=== PATIENT | female | born 1945 | race Two or more races ===

== ENCOUNTER → 2017-01-19 | Outpatient (CLI) | payer MEDICARE, MEDICAID ==
[2017-01-19 08:53] LABS: HEMATOCRIT 34.3 % (36.0-47.0); HEMOGLOBIN 11.5 g/dL (12.0-15.5); HGB HCT DIFFERENCE 0.2; MEAN CORPUSCULAR HEMOGLOBIN 30.9 pg (27.0-33.4); MEAN CORPUSCULAR HGB CONC 33.6 g/dL (32.0-36.0); MEAN CORPUSCULAR VOLUME 92 fl (80-97); RED BLOOD COUNT 3.72 10^6/uL (3.72-5.28); RED CELL DISTRIBUTION WIDTH 14.2 % (11.5-14.0); WHITE BLOOD COUNT 5.1 10^3/uL (4.0-10.5)
[2017-01-19 09:12] LABS: ALANINE AMINOTRANSFERASE 62 U/L (9-52); ALBUMIN 4.2 g/dL (3.5-5.0); ALKALINE PHOSPHATASE 66 U/L (38-126); ASPARTATE AMINO TRANSFERASE 59 U/L (14-36); BILIRUBIN,DIRECT 0.1 mg/dL (0.0-0.4); BILIRUBIN,TOTAL 0.3 mg/dL (0.2-1.3); CHOLESTEROL 171.32 mg/dL (0-200); CREATINE KINASE 803 U/L (30-135); Direct HDL 91 mg/dL (>40); TOTAL PROTEIN 6.5 g/dL (6.3-8.2); TRIGLYCERIDES 69 mg/dL (<150)
[2017-01-19 09:23] LABS: DIRECT LDL 56 mg/dL (<100)
== END ==
LOC: OD 07:45
PROVIDERS: ATTEND Internal Medicine Cardiovascular Disease
DX: R25.2 Cramp and spasm (principal); E78.00 Pure hypercholesterolemia, unspecified; Z79.899 Other long term (current) drug therapy
CPT/HCPCS: 36415; 80061; 80076; 82550; 85027

== ENCOUNTER → 2017-01-23 | Outpatient (CLI) | payer MEDICARE, MEDICAID ==
[2017-01-23 15:31] LABS: ANION GAP 11 (5-19); BLOOD UREA NITROGEN 25 mg/dL (7-20); CALCIUM 10.2 mg/dL (8.4-10.2); CARBON DIOXIDE 28 mmol/L (22-30); CHLORIDE 103 mmol/L (98-107); CREATININE RESULT 0.87 mg/dL (0.52-1.25); GLUCOSE 88 mg/dL (75-110); POTASSIUM 4.8 mmol/L (3.6-5.0); SODIUM 142.4 mmol/L (137-145)
== END ==
LOC: OD 11:38
PROVIDERS: ATTEND Internal Medicine Cardiovascular Disease
DX: Z79.899 Other long term (current) drug therapy (principal)
CPT/HCPCS: 36415; 80048

== ENCOUNTER → 2017-02-26 | Outpatient (CLI) | payer MEDICARE, MEDICAID ==
[2017-02-26 09:19] LABS: ALANINE AMINOTRANSFERASE 46 U/L (9-52); ALBUMIN 4.4 g/dL (3.5-5.0); ALKALINE PHOSPHATASE 71 U/L (38-126); ASPARTATE AMINO TRANSFERASE 43 U/L (14-36); BILIRUBIN,DIRECT 0.3 mg/dL (0.0-0.4); BILIRUBIN,TOTAL 0.6 mg/dL (0.2-1.3); CREATINE KINASE 298 U/L (30-135); TOTAL PROTEIN 7.5 g/dL (6.3-8.2)
== END ==
LOC: OD 07:50
PROVIDERS: ATTEND Internal Medicine Cardiovascular Disease
DX: R74.9 Abnormal serum enzyme level, unspecified (principal); R94.5 Abnormal results of liver function studies
CPT/HCPCS: 36415; 80076; 82550

== ENCOUNTER → 2017-03-03 | Outpatient (CLI) | payer MEDICARE, MEDICAID ==
[~2017-03-03] MED LIST: REGADENOSON INJ 0.4 MG/5 ML DISP.SYRIN IV ONE
--- NOTE | 2017-03-04 09:47 | RADIOLOGY REPORT ---
STRESS TEST REPORT PATIENT NAME: SHANIA BRENNER ROOM#: DATE OF SERVICE: 03/03/2017 AGE: 71Y ORDER#: [id number] REFERRING MD: SARA FERGUSON M.D. INDICATION: For assessment of abnormal EKG findings of old anteroseptal NY and multiple PVCs. PROCEDURE PERFORMED REST/STRESS SINGLE ISOTOPE CARDIOLITE SPECT IMAGING WITH IV LEXISCAN STRESS AND GATED SPECT IMAGING CLINICAL HISTORY This is a 71-year-old female with no known coronary artery disease, but has significant coronary risk factors of diabetes, hypertension, dyslipidemia, and family history of NY, presented with an abnormal ECG with PVCs and old anteroseptal NY. PROCEDURE The patient received IV Lexiscan 0.4 mg infused over ten seconds and flushed. The resting heart rate was 80 bpm and increased to 110 bpm at end infusion. The resting BP was 112/65 and increased to 134/70 at end infusion. The patient had symptoms of shortness of breath but no chest pains. This dissipated without need for treatment. Resting 12 lead EKG showed normal sinus rhythm at 72 bpm with old anteroseptal NY, PVCs frequent at six per minute. At end infusion, sinus tachycardia at 107 per minute was seen with one PAC, but no ST changes. Myocardial perfusion imaging was performed at rest 60 minutes following injection of 10.93 mCi Cardiolite. Ten seconds after IV Lexiscan injection, patient was injected with 32.3 mCi Cardiolite and flushed. Gated post stress tomographic imaging was performed 60 minutes after stress. FINDINGS The overall quality of the study is good. The left ventricular cavity is noted to be normal in size on both the rest and stress studies. There is no evidence of abnormal transient ischemic dilatation of the left ventricle. The TID ratio was 1.11. SPECT images showed no evidence of IV Lexiscan induced reversible ischemia and no fixed perfusion defects. Gated post-stress tomographic imaging showed normal motion and contraction of all LV segments. The left ventricular ejection fraction was calculated to be 68%. IMPRESSION: MYOCARDIAL PERFUSION IMAGING IS NORMAL. THERE IS NO EVIDENCE OF ANY IV LEXISCAN INDUCED REVERSIBLE ISCHEMIA. NO FIXED PERFUSION DEFECTS. OVERALL LEFT VENTRICULAR SYSTOLIC FUNCTION WAS NORMAL. NO REGIONAL WALL MOTION ABNORMALITY WAS SEEN AT ANY OF THE LV SEGMENTS. NO PRIOR STUDIES FOR COMPARISON. INTERPRETING PHYSICIAN: SARA FERGUSON M.D. /: IVONNE TT: [id number] ID: [id number] /: [id number] TD: [id number] JOB: [id number] cc:SARA FERGUSON M.D. >
== END ==
LOC: RAD 06:00
PROVIDERS: ATTEND Internal Medicine Cardiovascular Disease
DX: R94.31 Abnormal electrocardiogram [ECG] [EKG] (principal)
CPT/HCPCS: 93017; 78452; A9500; J2785; Q9969

== ENCOUNTER → 2017-07-06 | Outpatient (CLI) | payer MEDICARE, MEDICAID ==
[2017-07-06 10:28] LABS: ALANINE AMINOTRANSFERASE 44 U/L (9-52); ALBUMIN 4.4 g/dL (3.5-5.0); ALKALINE PHOSPHATASE 62 U/L (38-126); ASPARTATE AMINO TRANSFERASE 34 U/L (14-36); BILIRUBIN,DIRECT 0.3 mg/dL (0.0-0.4); BILIRUBIN,TOTAL 0.5 mg/dL (0.2-1.3); TOTAL PROTEIN 7.3 g/dL (6.3-8.2)
== END ==
LOC: OD 08:25
PROVIDERS: ATTEND Internal Medicine Cardiovascular Disease
DX: R94.5 Abnormal results of liver function studies (principal)
CPT/HCPCS: 36415; 80076

== ENCOUNTER → 2017-07-10 | Outpatient (CLI) | payer MEDICARE, MEDICAID ==
--- NOTE | 2017-07-10 08:57 | WOMENS IMAGING REPORT ---
EXAM DESCRIPTION: TRANSVAGINAL ULTRASOUND COMPLETED DATE/TIME: 07/10/2017 7:53 am REASON FOR STUDY: PELVIC PAIN IN FEMALE; R10.2 R10.2 PELVIC AND PERINEAL PAIN COMPARISON: None. TECHNIQUE: Dynamic and static grayscale images acquired of the pelvis via transvaginal approach and recorded on PACS. Additional selected color Doppler and spectral images recorded. LIMITATIONS: None. FINDINGS: UTERUS: Contour normal. No mass. Uterus measures 5 x 3.5 x 2.1 cm in size. ENDOMETRIAL STRIPE: Endometrium 3 mm in thickness, with trace fluid in the canal. CERVIX: No nabothian cysts. RIGHT OVARY: Not visualized RIGHT OVARY DOPPLER: Not performed LEFT OVARY: Not visualized LEFT OVARY DOPPLER: Not performed FREE FLUID: None noted. OTHER: No other significant finding. IMPRESSION: Small postmenopausal uterus. Ovaries not visualized. TECHNICAL DOCUMENTATION: JOB ID: [id number] [employer]- All Rights Reserved
== END ==
LOC: WI 07:23
PROVIDERS: ATTEND Family Medicine
DX: R10.2 Pelvic and perineal pain (principal)
CPT/HCPCS: 76830

== ENCOUNTER → 2017-10-26 | Outpatient (CLI) | payer MEDICARE, MEDICAID ==
--- NOTE | 2017-10-26 19:23 | XCELERA REPORT ---
[address] [address] Transthoracic Echocardiogram Report Name: SHANIA BRENNER Age: 71 yrs Gender: Female : 1945 Patient Status: Outpatient Patient Location: Study Date: 10/26/2017 10:04 AM Height: 59 in Weight: 109 lb BSA: 1.4 m2 Reason For Study: MURMUR Ordering Physician: SARA GRANDA Performed By: Nancy Gomez Interpretation Summary Mild AV sclerosis, 3 cusps AV, no , no AR. Mild MAC, no MS, no MR, no MVP, normal LA size. No LVH, normal LVEF 65-70%, with stage I LV diastolic dysfunction, no Regional wall motion abnormality, no LV enlargement. TV is normal, mild TR with RVSP 22mmHg RAP 3. no R heart enlargement. Heart murmur is from AV sclerosis, no . MMode/2D Measurements & Calculations RVDd: 2.9 cm LVIDd: 4.1 cm FS: 45.0 % Ao root diam: IVSd: 0.77 cm LVIDs: 2.2 cm EDV(Teich): 72.8 ml 2.8 cm LVPWd: 0.85 cm ESV(Teich): 16.9 ml Ao root area: EF(Teich): 76.8 % 6.3 cm2 LA dimension: 3.0 cm LVOT diam: LVLd ap4: 6.8 cm SV(MOD-sp4): 28.0 ml 1.9 cm EDV(MOD-sp4): LA A2Cs: 12.7 cm2 LVOT area: 41.0 ml LVLs ap4: 5.2 cm 2.8 cm2 ESV(MOD-sp4): 13.0 ml EF(MOD-sp4): 68.3 % LA A4Cs: LA length: 3.6 cm LA Vol Index (BP): LA Volume: 33.0 ml 11.0 cm2 23.2 ml/m2 Doppler Measurements & Calculations MV E max fransisco: MV P1/2t max fransisco: Ao V2 max: LV V1 max P.5 cm/sec 77.0 cm/sec 141.9 cm/sec 6.3 mmHg MV A max fransisco: MV P1/2t: 58.5 msec Ao max PG: LV V1 max: 99.7 cm/sec MVA(P1/2t): 3.8 cm2 8.1 mmHg 125.4 cm/sec MV E/A: 0.77 MV dec slope: CATALINA(V,D): 2.4 cm2 385.5 cm/sec2 PA V2 max: TR max fransisco: 65.2 cm/sec 217.2 cm/sec PA max PG: TR max P.9 mmHg 1.7 mmHg Left Ventricle The left ventricle is normal in size, thickness and function. The left ventricular ejection fraction is normal. LV EF is 65-70%. Doppler measurements suggest impaired left ventricular relaxation, which is associated with grade I/IV or mild diastolic dysfunction. No regional wall motion abnormalities noted. There is no thrombus. Right Ventricle The right ventricle is normal in size, thickness and function. The right ventricular systolic function is normal. Atria The right atrium is normal. The left atrial size is normal. The interatrial septum is intact with no evidence for an atrial septal defect. Mitral Valve The mitral valve leaflets are sclerotic and show some degree of functional abnormality. There is mild mitral annular calcification. There is no evidence of mitral valve prolapse. There is no mitral valve stenosis. There is no mitral regurgitation noted. Aortic Valve The aortic valve is trileaflet. The aortic valve opens well. The aortic valve is sclerotic and shows some degree of functional abnormality. There is no aortic valvular vegetation. There is no aortic valve stenosis. No aortic regurgitation is present. Tricuspid Valve The tricuspid valve is not well visualized secondary to technical limitations. There is no tricuspid valve prolapse. There is no tricuspid stenosis. There is a mild amount of tricuspid regurgitation. Best estimated RVSP is approximately 22 mm/Hg. Pulmonic Valve The pulmonic valve is not well visualized. There is no pulmonic valvular regurgitation. Great Vessels The aortic root is normal size. Effusions There is no pericardial effusion. I WMSI = 1.00 % Normal = 100 Segments Size X - Cannot 2 - 4 - 1-2 small Interpret 1 - Normal Hypokinetic 3 - AkineticDyskinetic 3-5 moderate 5 - 6-14 large Aneurysmal 15-16 diffuse : SARA GRANDA > Sara Granda
== END ==
LOC: SP 09:52
PROVIDERS: ATTEND Internal Medicine Cardiovascular Disease
DX: R01.1 Cardiac murmur, unspecified (principal)
CPT/HCPCS: 93306

== ENCOUNTER 2017-11-23 12:28 | Emergency (ER) | payer MEDICARE, MEDICAID ==
--- NOTE | 2017-11-23 12:59 | ER Document Report ---
ED Medical Screen (RME) - General Chief Complaint: Epigastric Pain Stated Complaint: EPIGASTRIC PAIN Time Seen by Provider: 11/23/17 12:58 Notes: pt with sudden onset of epigastrci pain one hr ago. yesterday had some rectal bleeding. no prev surgeries. no heart disease TRAVEL OUTSIDE OF THE [place] IN LAST 30 DAYS: No - Related Data Allergies/Adverse Reactions: No Known Allergies Allergy (Verified 11/23/17 12:29) Past Medical History - Social History Chew tobacco use (# tins/day): No Frequency of alcohol use: Occasional Drug Abuse: None - Past Medical History Cardiac Medical History: Reports: Hx Coronary Artery Disease, Hx Hypertension Denies: Hx Heart Attack Pulmonary Medical History: Reports: Hx Asthma, Hx Bronchitis Denies: Hx COPD, Hx Pneumonia Neurological Medical History: Denies: Hx Cerebrovascular Accident, Hx Seizures Renal/ Medical History: Denies: Hx Peritoneal Dialysis Musculoskeltal Medical History: Reports Hx Arthritis Past Surgical History: Denies: Hx Hysterectomy - Immunizations Hx Diphtheria, Pertussis, Tetanus Vaccination: Yes Physical Exam - Vital signs Vitals: Temp Pulse Resp BP Pulse Ox 98.1 F 71 13 142/75 H 99 11/23/17 12:32 11/23/17 12:32 11/23/17 12:32 11/23/17 12:32 11/23/17 12:32 Course - Vital Signs Vital signs: Temp Pulse Resp BP Pulse Ox 98.1 F 71 13 142/75 H 99 11/23/17 12:32 11/23/17 12:32 11/23/17 12:32 11/23/17 12:32 11/23/17 12:32
[2017-11-23 13:36] LABS: ABSOLUTE BASOPHILS # (AUTO) 0.1 10^3/uL (0.0-0.2); ABSOLUTE EOSINOPHILS # (AUTO) 0.1 10^3/uL (0.0-0.6); ABSOLUTE LYMPHOCYTES (AUTO) 2.7 10^3/uL (0.5-4.7); ABSOLUTE MONOCYTES (AUTO) 0.4 10^3/uL (0.1-1.4); ABSOLUTE NEUT (AUTO) 3.7 10^3/uL (1.7-8.2); BASOPHILS % (AUTO) 0.9 % (0-2); HEMATOCRIT 33.2 % (36.0-47.0); HEMOGLOBIN 11.3 g/dL (12.0-15.5); LYMPHOCYTES % (AUTO) 39.2 % (13-45); MEAN CORPUSCULAR HEMOGLOBIN 30.5 pg (27.0-33.4); MEAN CORPUSCULAR VOLUME 90 fl (80-97); MONOCYTES % (AUTO) 5.4 % (3-13); PLATELET COUNT 326 10^3/uL (150-450); RED BLOOD COUNT 3.71 10^6/uL (3.72-5.28); SEGMENTED NEUTROPHILS % (AUTO) 53.5 % (42-78); TOTAL CELLS COUNTED % (AUTO) 100 %; WHITE BLOOD COUNT 6.8 10^3/uL (4.0-10.5)
--- NOTE | 2017-11-23 13:48 | EKG REPORT ---
SEVERITY:- ABNORMAL ECG - SINUS RHYTHM PROBABLE LEFT ATRIAL ABNORMALITY CONSIDER ANTEROSEPTAL INFARCT : Confirmed by: Mert Granda MD 23-Nov-2017 13:46:44
[2017-11-23 14:12] LABS: ALANINE AMINOTRANSFERASE 30 U/L (9-52); ALBUMIN 4.6 g/dL (3.5-5.0); ALKALINE PHOSPHATASE 68 U/L (38-126); ANION GAP 13 (5-19); ASPARTATE AMINO TRANSFERASE 34 U/L (14-36); BILIRUBIN,DIRECT 0.1 mg/dL (0.0-0.4); BILIRUBIN,TOTAL 0.2 mg/dL (0.2-1.3); BLOOD UREA NITROGEN 28 mg/dL (7-20); CALCIUM 9.8 mg/dL (8.4-10.2); CARBON DIOXIDE 25 mmol/L (22-30); CHLORIDE 102 mmol/L (98-107); GLUCOSE 87 mg/dL (75-110); LIPASE 254.2 U/L (23-300); POTASSIUM 4.4 mmol/L (3.6-5.0); SODIUM 140.1 mmol/L (137-145); TOTAL PROTEIN 7.2 g/dL (6.3-8.2)
--- NOTE | 2017-11-23 19:05 | RADIOLOGY REPORT (SQ) ---
EXAM DESCRIPTION: CT ABD/PELVIS WITH IV ORAL COMPLETED DATE/TIME: 11/23/2017 6:33 pm REASON FOR STUDY: Epigastric pain, rectal bleeding COMPARISON: None. TECHNIQUE: CT scan of the abdomen and pelvis performed with intravenous and oral contrast using olga galindo scanning technique with dynamic intravenous contrast injection. Images reviewed with lung, soft t issue, and bone windows. Reconstructed coronal and sagittal MPR images reviewed. Delayed images for e valuation of the urinary system also acquired. All images stored on PACS. All CT scanners at this facility use dose modulation, iterative reconstruction, and/or weight based d osing when appropriate to reduce radiation dose to as low as reasonably achievable (ALARA). [facility]: Dose Right [facility]: CareDose [facility]: Dose Right [facility]: Teradose 4D [facility]: [employer] CONTRAST TYPE AND DOSE: contrast/concentration: Isovue 370.00 mg/ml; Total Contrast Delivered: 53.0 ml; Total Saline Delivered: 45.0 ml RENAL FUNCTION: BUN 28 creatinine 0.97. RADIATION DOSE: CT Rad equipment meets quality standard of care and radiation dose reduction techniq ues were employed. CTDIvol: 4.9 - 5.6 mGy. DLP: 518 mGy-cm. . LIMITATIONS: None. FINDINGS: LOWER CHEST: No significant findings. No nodules or infiltrates. LIVER: Normal size. 6 mm cyst. No dilated ducts. SPLEEN: Normal size. No focal lesions. PANCREAS: No masses. No significant calcifications. No adjacent inflammation or peripancreatic fluid collections. Pancreatic duct not dilated. GALLBLADDER: No identified stones by CT criteria. No inflammatory changes to suggest cholecystitis. ADRENAL GLANDS: No significant masses or asymmetry. RIGHT KIDNEY AND URETER: No solid masses. No significant calcifications. No hydronephrosis or hyd roureter. LEFT KIDNEY AND URETER: No solid masses. No significant calcifications. No hydronephrosis or hydr oureter. AORTA AND VESSELS: No aneurysm. No dissection. Renal arteries, SMA, celiac without stenosis. RETROPERITONEUM: No retroperitoneal adenopathy, hemorrhage or masses. BOWEL AND PERITONEAL CAVITY: No obstruction. No visualized masses. No free fluid. Sigmoid diverticul osis. No inflammatory changes or thickening of bowel wall. APPENDIX: Normal. PELVIS: No significant masses. A few coarse calcifications in the uterus consistent with calcified u terine fibroids. Normal bladder. No free fluid. ABDOMINAL WALL: No masses. No hernias. BONES: No significant or acute findings. Degenerative changes in the spine. OTHER: No other significant finding. IMPRESSION: SIGMOID DIVERTICULOSIS. NO CT FINDINGS OF ACUTE DIVERTICULITIS. SMALL SUBCENTIMETER CY ST IN THE LIVER. NO OTHER SIGNIFICANT OR ACUTE FINDINGS IN THE ABDOMEN OR PELVIS. TECHNICAL DOCUMENTATION: JOB ID: [id number] Quality ID # [id number]: Final reports with documentation of one or more dose reduction techniques (e.g., Au tomated exposure control, adjustment of the mA and/or kV according to patient size, use of iterative reconstruction technique) 2010 [employer]- All Rights Reserved Reading location - IP/workstation name: [email or web address]
--- NOTE | 2017-11-23 19:07 | ER Document Report ---
ED GI/ - General Chief Complaint: Epigastric Pain Stated Complaint: EPIGASTRIC PAIN Time Seen by Provider: 11/23/17 12:58 Notes: Patient says that she is been experiencing mid epigastric pain since yesterday evening. She has had it once or twice in the past. Has a history of GERD. Also, was told 2 years ago that she has an ulcer. Today, patient has had 2 bowel movements, and both of them have been associated with some bright red blood, which is not symptoms she has ever had before. She does not have any new pains, in particular no pains rectally with her bowel movements that have been bloody today. She denies any nausea or vomiting. Patient denies any fevers. She has never had any abdominal surgeries. Does take medications for GERD. Has not had a colonoscopy. TRAVEL OUTSIDE OF THE [place] IN LAST 30 DAYS: No - Related Data Allergies/Adverse Reactions: No Known Allergies Allergy (Verified 11/23/17 12:29) Past Medical History - Social History Smoking Status: Former Smoker Chew tobacco use (# tins/day): No Frequency of alcohol use: Occasional Drug Abuse: None Family History: Reviewed & Not Pertinent Patient has suicidal ideation: No Patient has homicidal ideation: No - Past Medical History Cardiac Medical History: Reports: Hx Coronary Artery Disease, Hx Hypertension Denies: Hx Heart Attack Pulmonary Medical History: Reports: Hx Asthma, Hx Bronchitis GI Medical History: Reports: Hx Gastroesophageal Reflux Disease, Hx Ulcer. Denies: Hx Ulcerative Colitis Musculoskeltal Medical History: Reports Hx Arthritis Past Surgical History: Reports: None. Denies: Hx Hysterectomy - Immunizations Hx Diphtheria, Pertussis, Tetanus Vaccination: Yes Review of Systems - Review of Systems Notes: REVIEW OF SYSTEMS: CONSTITUTIONAL : Denies fever. EENT: Denies eye, ear, nose or mouth or throat pain or other symptoms. CARDIOVASCULAR: Denies chest pain. RESPIRATORY: Denies cough, chest congestion, or shortness of breath. GASTROINTESTINAL: See HPI. GENITOURINARY: Denies difficulty or painful urinating, urinary frequency, blood in urine. MUSCULOSKELETAL: Denies back or neck pain. Denies joint pain or swelling. SKIN: Denies rash or skin lesions. NEUROLOGICAL: Denies LOC or altered mental status. Denies headache. Denies sensory loss or motor deficits. ALL OTHER SYSTEMS REVIEWED AND NEGATIVE. Physical Exam - Vital signs Vitals: Temp Pulse Resp BP Pulse Ox 98.1 F 71 13 142/75 H 99 11/23/17 12:32 11/23/17 12:32 11/23/17 12:32 11/23/17 12:32 11/23/17 12:32 Interpretation: Normal - Notes Notes: PHYSICAL EXAMINATION: GENERAL: Well-appearing, in no acute distress. Vital signs are all essentially normal. HEAD: Atraumatic, normocephalic. EYES: Pupils equal round and reactive to light, extraocular movements intact. ENT: oropharynx clear without exudates. Moist mucous membranes. NECK: Normal range of motion, supple. LUNGS: Breath sounds clear and equal bilaterally. HEART: Regular rate and rhythm without murmurs. ABDOMEN: Soft, tender in the epigastrium. No guarding or rebound. No masses. No bruits heard. Rectal exam, no hemorrhoids seen or felt. Yellowish brown stool on glove. Hemoccult came back positive, however, on the specimen. Patient has in her purse a bag with a piece of stool in it that she retrieved from 1 of the bowel movements today. She also took a picture and showed me it, as well. She says that that is blood along the side of the picture. Curiously , this specimen tested negative for guaiac?? No active or fresh blood present. No pain on that examination. BACK: No tenderness throughout entire back. EXTREMITIES: Normal range of motion without pain. NEUROLOGICAL: Normal speech, normal gait. Normal sensory, motor, and reflex exams. Awake, alert, and oriented x3. Cranial nerves normal. PSYCH: Normal mood, normal affect. SKIN: Warm, dry, no rashes. Course - Re-evaluation Re-evalutation: 11/23/17 19:43 Patient's hemoglobin is 11.3, which is stable for her, checking on old records previously. BUN was up slightly, perhaps secondary to some GI bleeding, although the patient does not have any indication of current active bleeding. Diverticulosis has been known to cause some bleeding and patient does have diverticulosis on her CT scan, but not diverticulitis. - Vital Signs Vital signs: Temp Pulse Resp BP Pulse Ox 98.0 F 64 16 122/53 L 100 11/23/17 16:50 11/23/17 16:50 11/23/17 16:50 11/23/17 16:50 11/23/17 16:50 - Laboratory Result Diagrams: 11/23/17 13:21 11/23/17 13:21 Laboratory results interpreted by me: 11/23/17 11/23/17 13:21 13:21 RBC 3.71 L Hgb 11.3 L Hct 33.2 L BUN 28 H Est GFR (Non-Af Amer) 57 L - Diagnostic Test Radiology reviewed: Image reviewed, Reports reviewed - CT scan shows sigmoid diverticulosis, but not diverticulitis. Otherwise essentially unremarkable except for a liver cyst. - EKG Interpretation by Me EKG shows normal: Sinus rhythm Rate: Normal Rhythm: NSR Additional EKG results interpreted by me: 11/23/17 19:42 EKG shows poor R-wave progression, but nothing that looks like an acute process. Discharge - Discharge Clinical Impression: Epigastric pain, Rectal bleeding, Diverticulosis Condition: Stable Disposition: HOME, SELF-CARE Additional Instructions: Rectal Bleeding, Unclear Cause No definite cause has been found for the rectal bleeding you have experienced. Among the possible causes are internal or external hemorrhoids ( internal hemorrhoids can't be felt on the outside), an anal fissure (a crack at the anal ring), infections or inflammatory diseases of the colon, tumors or polyps, or diverticula (diverticula are outpouchings from the colon wall). To establish a cause for your bleeding (or at least make certain there is no serious problem such as a tumor), further evaluation will be necessary. This may include special X-rays, or passage of a scope up into the colon. Be sure to keep your follow-up appointment. Should you develop brisk bleeding, abdominal pain, fever, lightheadedness, or fever, call the doctor or return at once. Diverticulosis On your CT scan, you have diverticulosis, but not diverticulitis. Unless that condition changes, you do not need to be in the hospital or have any surgeries. You do need to have further workup. Follow-up with your doctor to arrange for you to have an upper and lower scoping procedure soon. Return if you develop heavy, repeated bleeding, fevers, worsening abdominal pain , etc. FOLLOW-UP CARE: If you have been referred to a physician for follow-up care, call the physician s office for an appointment as you were instructed or within the next two days. If you experience worsening or a significant change in your symptoms, notify the physician immediately or return to the Emergency Department at any time for re-evaluation. Follow-up with your doctor, Dr. rIwin in the next week.
[2017-11-23 19:41] VITALS: BP 115/74
== END 2017-11-23 19:46 | disposition home or self-care (01) ==
LOC: ER 12:28
DX: K21.9 Gastro-esophageal reflux disease without esophagitis (principal); Z79.899 Other long term (current) drug therapy; K57.30 Diverticulosis of large intestine without perforation or abscess without bleeding; K62.5 Hemorrhage of anus and rectum; R10.13 Epigastric pain; I10 Essential (primary) hypertension; I25.10 Atherosclerotic heart disease of native coronary artery without angina pectoris; J45.909 Unspecified asthma, uncomplicated; Z87.891 Personal history of nicotine dependence
CPT/HCPCS: 36415; 74177; 80053; 82272; 83690; 84484; 85025; 93005; 93010; 99285

== ENCOUNTER 2017-12-07 09:17 | Day surgery (SDC) | payer MEDICARE, MEDICAID ==
[~2017-12-07 09:17] MED LIST changes: +PROPOFOL INJ 200 MG/20 ML VIAL IV ONE; -REGADENOSON INJ 0.4 MG/5 ML DISP.SYRIN IV ONE
[2017-12-07] MEDS ORDERED: PROPOFOL INJ 200 MG/20 ML VIAL IV ONE (10:43)
[2017-12-07 11:33] VITALS: BP 117/51
--- NOTE | 2017-12-07 13:58 | Operative Report ---
Operative Report DATE OF SURGERY: 12/07/17 Operative Report: The risks, benefits and alternatives of the procedure including risks of bleeding, perforation requiring surgery are explained to the patient in detail and informed consent is obtained. Patient was taken to the endoscopy suite and placed in the left, lateral decubital position. Timeout was called. Propofol medications administered. A rectal examination is done which did not reveal any masses, tears or fissures. An Olympus videoscope was inserted into the patient's rectum. The scope was then carefully advanced all the way to the cecum. The cecum was identified by the usual proximal including the ileocecal valve as well as the appendiceal office. Photodocumentation is obtained. Prep is good. The scope was then sequentially pulled back via the various segments of the colon including the ascending colon, hepatic flexure, descending colon and finally into to the rectosigmoid portions of the colon. Retroflexion maneuvers performed. The risks benefits and alternatives of the procedure explained to the patient in detail and informed consent is obtained.A GIF Olympus video scope was inserted into the patient's mouth and hypopharynx, the esophagus is identified intubated and insufflated, the scope was then advanced through the esophagus stomach and duodenum, retroflexion maneuver is done ,the esophagus stomach and first and second portions of the duodenum examined PREOPERATIVE DIAGNOSIS: Epigastric pain. Rectal bleeding. Known history of diverticulosis POSTOPERATIVE DIAGNOSIS: Gastritis status post biopsy rule out Helicobacter pylori. Schatzki's ring that is broken. Internal hemorrhoids. Moderate sigmoid diverticulosis OPERATION: Diagnostic colonoscopy. EGD with biopsy SURGEON: PADILLA GOLD ANESTHESIA: LMAC TISSUE REMOVED OR ALTERED: As noted above. COMPLICATIONS: None. ESTIMATED BLOOD LOSS: None. INTRAOPERATIVE FINDINGS: As noted above. PROCEDURE: Patient tolerated procedure well. No immediate postprocedure complications are noted. Patient discharged in good condition. Discharge date 12/07/2017. Discharge diet: Regular. Discharge activity: Regular. 2-3 week follow-up discuss findings. Patient is instructed call the office or proceed to the emergency room should have any further problems or questions. We will await pathology.
== END 2017-12-07 11:25 | disposition home or self-care (01) ==
LOC: END 09:17
PROVIDERS: ATTEND Internal Medicine Gastroenterology
PROC: 0DB68ZX Excision of Stomach, Via Natural or Artificial Opening Endoscopic, Diagnostic (ICD-10-PCS; principal; 2017-12-07 12:00)
DX: K29.50 Unspecified chronic gastritis without bleeding (principal); K22.9 Disease of esophagus, unspecified; K62.5 Hemorrhage of anus and rectum; K64.8 Other hemorrhoids; K57.30 Diverticulosis of large intestine without perforation or abscess without bleeding; I10 Essential (primary) hypertension; E11.9 Type 2 diabetes mellitus without complications; J44.9 Chronic obstructive pulmonary disease, unspecified; E78.5 Hyperlipidemia, unspecified; J45.40 Moderate persistent asthma, uncomplicated; M81.0 Age-related osteoporosis without current pathological fracture; Z79.899 Other long term (current) drug therapy; Z79.84 Long term (current) use of oral hypoglycemic drugs; Z87.891 Personal history of nicotine dependence; Z79.51 Long term (current) use of inhaled steroids; Z86.010 Personal history of colon polyps
CPT/HCPCS: 43239; 45378; 82962; 88305 ×2; J2704; 813

== ENCOUNTER → 2018-02-04 | Outpatient (CLI) | payer MEDICARE, MEDICAID ==
[2018-02-04 09:52] LABS: HEMOGLOBIN 11.2 g/dL (12.0-15.5); MEAN CORPUSCULAR HEMOGLOBIN 29.8 pg (27.0-33.4); MEAN CORPUSCULAR VOLUME 90 fl (80-97); PLATELET COUNT 325 10^3/uL (150-450); RED BLOOD COUNT 3.76 10^6/uL (3.72-5.28); RED CELL DISTRIBUTION WIDTH 14.9 % (11.5-14.0); WHITE BLOOD COUNT 7.3 10^3/uL (4.0-10.5)
[2018-02-04 10:13] LABS: ALANINE AMINOTRANSFERASE 30 U/L (9-52); ALBUMIN 4.3 g/dL (3.5-5.0); ALKALINE PHOSPHATASE 60 U/L (38-126); ANION GAP 11 (5-19); ASPARTATE AMINO TRANSFERASE 32 U/L (14-36); BILIRUBIN,DIRECT 0.2 mg/dL (0.0-0.4); BILIRUBIN,TOTAL 0.3 mg/dL (0.2-1.3); BLOOD UREA NITROGEN 24 mg/dL (7-20); CALCIUM 9.7 mg/dL (8.4-10.2); CARBON DIOXIDE 28 mmol/L (22-30); CHLORIDE 103 mmol/L (98-107); CHOLESTEROL 225.73 mg/dL (0-200); CREATINE KINASE 239 U/L (30-135); GLUCOSE 87 mg/dL (75-110); POTASSIUM 4.6 mmol/L (3.6-5.0); SODIUM 142.3 mmol/L (137-145); TRIGLYCERIDES 75 mg/dL (<150)
[2018-02-04 10:24] LABS: DIRECT LDL 88 mg/dL (<100)
== END ==
LOC: OD 09:12
PROVIDERS: ATTEND Internal Medicine Cardiovascular Disease
DX: R94.5 Abnormal results of liver function studies (principal); E78.00 Pure hypercholesterolemia, unspecified; D64.9 Anemia, unspecified; R26.2 Difficulty in walking, not elsewhere classified; I10 Essential (primary) hypertension; Z79.899 Other long term (current) drug therapy
CPT/HCPCS: 36415; 80048; 80061; 80076; 82550; 83735; 85027

== ENCOUNTER → 2018-05-05 | Outpatient (CLI) | payer MEDICARE, MEDICAID ==
[2018-05-05 09:13] LABS: ALANINE AMINOTRANSFERASE 39 U/L (9-52); ALBUMIN 4.3 g/dL (3.5-5.0); ALKALINE PHOSPHATASE 52 U/L (38-126); ASPARTATE AMINO TRANSFERASE 35 U/L (14-36); BILIRUBIN,DIRECT 0.3 mg/dL (0.0-0.4); BILIRUBIN,TOTAL 0.4 mg/dL (0.2-1.3); TOTAL PROTEIN 7.3 g/dL (6.3-8.2)
== END ==
LOC: OD 08:20
PROVIDERS: ATTEND Internal Medicine Cardiovascular Disease
DX: R94.5 Abnormal results of liver function studies (principal)
CPT/HCPCS: 36415; 80076

== ENCOUNTER → 2018-05-17 | Outpatient (CLI) | payer MEDICARE, MEDICAID ==
--- NOTE | 2018-05-17 09:35 | WOMENS IMAGING REPORT ---
EXAM DESCRIPTION: U/S ABDOMEN LIMITED COMPLETED DATE/TIME: 05/17/2018 7:59 am REASON FOR STUDY: R94.5;ABNORMAL LIVER FUNCTION R94.5 ABNORMAL RESULTS OF LIVER FUNCTION STUDIES COMPARISON: CT abdomen and pelvis examination dated 11/23/2017. TECHNIQUE: Dynamic and static grayscale images acquired of the abdomen and recorded on PACS. Additio nal selected color Doppler and spectral images recorded. LIMITATIONS: None. FINDINGS: PANCREAS: No masses. Visualized pancreatic duct normal caliber. LIVER: The liver measures 12.5 cm. A thinly septated cyst measures 7 x 8 x 7 mm, correlates with the CT examination dated 11/23/2017. LIVER VASCULATURE: Normal directional flow of the main portal vein and hepatic veins. GALLBLADDER: No stones. The gallbladder wall measures 2.0 mm, normal wall thickness. No pericholecys tic fluid. ULTRASOUND-DETECTED JAY'S SIGN: Negative. INTRAHEPATIC DUCTS AND COMMON DUCT: CBD measures 3.3 mm in diameter, normal. The intrahepatic ducts normal caliber. No filling defects. INFERIOR VENA CAVA: Normal flow. AORTA: No aneurysm. RIGHT KIDNEY: The right kidney measures 10.1 x 3.2 x 4.5 cm, normal size. Normal echogenicity. No so lid or suspicious masses. No hydronephrosis. No calcifications. PERITONEAL AND RIGHT PLEURAL SPACE: No ascites or effusions. OTHER: No other significant findings. IMPRESSION: 1 Small thinly septated hepatic cyst, correlates with the CT examination dated 11/23/2017 . 2 Examination is otherwise unremarkable sonographically. TECHNICAL DOCUMENTATION: JOB ID: [id number] [employer]- All Rights Reserved Reading location - IP/workstation name: [email or web address]
== END ==
LOC: WI 07:12
PROVIDERS: ATTEND Internal Medicine Cardiovascular Disease
DX: R94.5 Abnormal results of liver function studies (principal)
CPT/HCPCS: 76705

== ENCOUNTER → 2018-08-02 | Outpatient (CLI) | payer MEDICARE, MEDICAID ==
[2018-08-02 10:42] LABS: TRIGLYCERIDES 72 mg/dL (<150)
[2018-08-02 10:43] LABS: ALANINE AMINOTRANSFERASE 31 U/L (9-52); ALBUMIN 4.3 g/dL (3.5-5.0); ALKALINE PHOSPHATASE 73 U/L (38-126); ASPARTATE AMINO TRANSFERASE 35 U/L (14-36); BILIRUBIN,DIRECT 0.1 mg/dL (0.0-0.4); BILIRUBIN,TOTAL 0.4 mg/dL (0.2-1.3); TOTAL PROTEIN 6.9 g/dL (6.3-8.2)
[2018-08-02 10:56] LABS: DIRECT LDL 118 mg/dL (<100)
== END ==
LOC: OD 08:58
PROVIDERS: ATTEND Internal Medicine Cardiovascular Disease
DX: E78.00 Pure hypercholesterolemia, unspecified (principal); R94.5 Abnormal results of liver function studies
CPT/HCPCS: 36415; 80061; 80076

== ENCOUNTER → 2018-11-04 | Outpatient (CLI) | payer MEDICARE, MEDICAID ==
[2018-11-04 10:34] LABS: ALANINE AMINOTRANSFERASE 28 U/L (9-52); ALBUMIN 4.3 g/dL (3.5-5.0); ALKALINE PHOSPHATASE 73 U/L (38-126); ANION GAP 8 (5-19); ASPARTATE AMINO TRANSFERASE 30 U/L (14-36); BILIRUBIN,DIRECT 0.2 mg/dL (0.0-0.4); BILIRUBIN,TOTAL 0.4 mg/dL (0.2-1.3); BLOOD UREA NITROGEN 27 mg/dL (7-20); CALCIUM 9.7 mg/dL (8.4-10.2); CARBON DIOXIDE 30 mmol/L (22-30); CHLORIDE 104 mmol/L (98-107); CREATINE KINASE 185 U/L (30-135); GLUCOSE 92 mg/dL (75-110); POTASSIUM 4.6 mmol/L (3.6-5.0); SODIUM 141.5 mmol/L (137-145); TOTAL PROTEIN 6.9 g/dL (6.3-8.2); TRIGLYCERIDES 103 mg/dL (<150)
[2018-11-04 10:45] LABS: DIRECT LDL 102 mg/dL (<100)
== END ==
LOC: OD 09:21
PROVIDERS: ATTEND Internal Medicine Cardiovascular Disease
DX: E78.00 Pure hypercholesterolemia, unspecified (principal); I10 Essential (primary) hypertension; R74.9 Abnormal serum enzyme level, unspecified; Z79.899 Other long term (current) drug therapy
CPT/HCPCS: 36415; 80048; 80061; 80076; 82550

== ENCOUNTER → 2018-11-09 | Outpatient (CLI) | payer MEDICARE, MEDICAID ==
[2018-11-09 10:57] LABS: HEMATOCRIT 36.4 % (36.0-47.0); HEMOGLOBIN 12.5 g/dL (12.0-15.5); MEAN CORPUSCULAR HEMOGLOBIN 31.9 pg (27.0-33.4); MEAN CORPUSCULAR HGB CONC 34.3 g/dL (32.0-36.0); MEAN CORPUSCULAR VOLUME 93 fl (80-97); PLATELET COUNT 319 10^3/uL (150-450); RED BLOOD COUNT 3.92 10^6/uL (3.72-5.28); RED CELL DISTRIBUTION WIDTH 13.6 % (11.5-14.0); WHITE BLOOD COUNT 6.3 10^3/uL (4.0-10.5)
[2018-11-09 11:39] LABS: ERYTHROCYTE SEDIMENTATION RATE 25 mm/hr (0-30)
[2018-11-10 14:58] LABS: ANTINUCLEAR ANTIBODIES Negative (Negative)
[2018-11-11 15:37] LABS: ANTIMYELOPEROXIDASE (MPO) AB <9.0 U/mL (0.0-9.0); CYTOPLASMIC (C-ANCA) <1:20 titer (Neg:<1:20)
[2018-11-12 02:46] LABS: ATYPICAL PANCA <1:20 titer (Neg:<1:20); PERINUCLEAR (P-ANCA) <1:20 titer (Neg:<1:20)
== END ==
LOC: OD 10:07
PROVIDERS: ATTEND Internal Medicine Cardiovascular Disease
DX: L95.9 Vasculitis limited to the skin, unspecified (principal); R21 Rash and other nonspecific skin eruption
CPT/HCPCS: 36415; 83516; 85027; 85652; 86038; 86141; 86256

== ENCOUNTER → 2018-12-23 | Outpatient (CLI) | payer MEDICARE, MEDICAID ==
[2018-12-23 09:30] LABS: HEMATOCRIT 37.9 % (36.0-47.0); MEAN CORPUSCULAR HEMOGLOBIN 31.7 pg (27.0-33.4); MEAN CORPUSCULAR HGB CONC 34.2 g/dL (32.0-36.0); MEAN CORPUSCULAR VOLUME 93 fl (80-97); PLATELET COUNT 288 10^3/uL (150-450); RED BLOOD COUNT 4.09 10^6/uL (3.72-5.28); RED CELL DISTRIBUTION WIDTH 13.7 % (11.5-14.0); WHITE BLOOD COUNT 4.6 10^3/uL (4.0-10.5)
[2018-12-23 10:11] LABS: ANION GAP 6 (5-19); BLOOD UREA NITROGEN 28 mg/dL (7-20); CALCIUM 10.3 mg/dL (8.4-10.2); CARBON DIOXIDE 29 mmol/L (22-30); CHLORIDE 101 mmol/L (98-107); CREATINE KINASE 209 U/L (30-135); GLUCOSE 88 mg/dL (75-110); POTASSIUM 4.7 mmol/L (3.6-5.0); SODIUM 136.4 mmol/L (137-145)
== END ==
LOC: OD 08:55
PROVIDERS: ATTEND Internal Medicine Cardiovascular Disease
DX: I10 Essential (primary) hypertension (principal); R25.2 Cramp and spasm; D64.9 Anemia, unspecified; E55.9 Vitamin D deficiency, unspecified; Z79.899 Other long term (current) drug therapy
CPT/HCPCS: 36415; 80048; 82306; 82550; 83735; 84443; 85027

== ENCOUNTER → 2019-06-27 | Outpatient (CLI) | payer MEDICARE, MEDICAID ==
[2019-06-27 09:06] LABS: ALBUMIN 4.4 g/dL (3.5-5.0); ALKALINE PHOSPHATASE 61 U/L (38-126); ANION GAP 8 (5-19); ASPARTATE AMINO TRANSFERASE 36 U/L (14-36); BILIRUBIN,DIRECT 0.2 mg/dL (0.0-0.4); BILIRUBIN,TOTAL 0.5 mg/dL (0.2-1.3); BLOOD UREA NITROGEN 23 mg/dL (7-20); CARBON DIOXIDE 29 mmol/L (22-30); CHLORIDE 101 mmol/L (98-107); CHOLESTEROL 246.95 mg/dL (0-200); GLUCOSE 94 mg/dL (75-110); POTASSIUM 4.7 mmol/L (3.6-5.0); TOTAL PROTEIN 7.6 g/dL (6.3-8.2); TRIGLYCERIDES 125 mg/dL (<150)
[2019-06-27 09:17] LABS: DIRECT LDL 130 mg/dL (<100)
== END ==
LOC: OD 07:35
PROVIDERS: ATTEND Internal Medicine Cardiovascular Disease
DX: E78.00 Pure hypercholesterolemia, unspecified (principal); I10 Essential (primary) hypertension; Z79.899 Other long term (current) drug therapy
CPT/HCPCS: 36415; 80048; 80061; 80076

== ENCOUNTER → 2019-10-06 | Outpatient (CLI) | payer MEDICARE, MEDICAID ==
[2019-10-06 09:56] LABS: ANION GAP 8 (5-19); BLOOD UREA NITROGEN 21 mg/dL (7-20); CALCIUM 10.4 mg/dL (8.4-10.2); CARBON DIOXIDE 30 mmol/L (22-30); CHLORIDE 101 mmol/L (98-107); GLUCOSE 96 mg/dL (75-110); POTASSIUM 4.5 mmol/L (3.6-5.0)
== END ==
LOC: OD 08:46
PROVIDERS: ATTEND Internal Medicine Cardiovascular Disease
DX: I10 Essential (primary) hypertension (principal); Z79.899 Other long term (current) drug therapy
CPT/HCPCS: 36415; 80048

== ENCOUNTER → 2020-01-13 | Outpatient (CLI) | payer MEDICARE, MEDICAID ==
[2020-01-13 10:30] LABS: ALBUMIN 4.3 g/dL (3.5-5.0); ALKALINE PHOSPHATASE 68 U/L (38-126); ANION GAP 6 (5-19); ASPARTATE AMINO TRANSFERASE 30 U/L (14-36); BILIRUBIN,TOTAL 0.5 mg/dL (0.2-1.3); BLOOD UREA NITROGEN 24 mg/dL (7-20); CALCIUM 9.5 mg/dL (8.4-10.2); CARBON DIOXIDE 28 mmol/L (22-30); CHLORIDE 103 mmol/L (98-107); GLUCOSE 92 mg/dL (75-110); POTASSIUM 4.5 mmol/L (3.6-5.0); TOTAL PROTEIN 7.5 g/dL (6.3-8.2)
== END ==
LOC: OD 09:01
PROVIDERS: ATTEND Internal Medicine Cardiovascular Disease
DX: I10 Essential (primary) hypertension (principal); R25.2 Cramp and spasm; R94.5 Abnormal results of liver function studies; Z79.899 Other long term (current) drug therapy
CPT/HCPCS: 36415; 80048; 80076; 83735

== ENCOUNTER → 2020-04-23 | Outpatient (CLI) | payer MEDICARE, MEDICAID ==
[2020-04-23 08:39] LABS: ANION GAP 9 (5-19); BLOOD UREA NITROGEN 29 mg/dL (7-20); CARBON DIOXIDE 25 mmol/L (22-30); CHLORIDE 103 mmol/L (98-107); GLUCOSE 99 mg/dL (75-110); POTASSIUM 4.8 mmol/L (3.6-5.0)
== END ==
LOC: OD 07:22
PROVIDERS: ATTEND Internal Medicine Cardiovascular Disease
DX: E83.42 Hypomagnesemia (principal); I10 Essential (primary) hypertension; Z79.899 Other long term (current) drug therapy
CPT/HCPCS: 36415; 80048; 83735

== ENCOUNTER → 2020-05-24 | Outpatient (CLI) | payer MEDICARE, MEDICAID ==
[~2020-05-24] MED LIST changes: -PROPOFOL INJ 200 MG/20 ML VIAL IV ONE; +REGADENOSON INJ 0.4 MG/5 ML DISP.SYRIN IV ONE
--- NOTE | 2020-05-25 12:57 | DRAGON STRESS TEST REPORT ---
INTRAVENOUS LEXISCAN CARDIOLITE STRESS TEST USING SINGLE PHOTON EMMISION COMPUTERIZED TOMOGRAPHIC. DATE OF PROCEDURE: May 24, 2020. INDICATION : Chest pain CARDIAC RISK FACTORS: Hypertension RESTING EKG: Sinus rhythm without baseline ST-T wave changes STRESS EKG: No significant ST segment changes noted with LexiScan bolus REASON FOR TERMINATION: Protocol. PROCEDURE REPORT: Baseline heart rate 81 beats per minute with blood pressure of 114/61. Patient had no significant complaints. Patient was bolused with Lexiscan 0.4 mg intravenously followed by saline bolus. Heart rate at 2 minutes post bolus 96 with a blood pressure of 140/69. 3 minutes post bolus heart rate 96 with blood pressure of 118/68. No significant EKG changes were noted. Patient had no significant complaints during the procedure or postprocedure. CONCLUSIONS: Normal EKG and hemodynamic response to IV LexiScan. NUCLEAR DATA: At rest the patient was given 10.91 millicuries of technetium 99 sestamibi injected intravenously. As per protocol rest gated SPECT images were obtained. On day of stress test, the patient was given intravenous LexiScan at a dose of 0.4 mg in 5 mL intravenously, followed by flush with normal saline. Subsequently the stress dose of 29.8 millicuries of technetium 99 sestamibi was injected intravenously. As per protocol stress gated images were obtained. NUCLEAR INTERPRETATION: Both raw and processed data were used for interpretation. Visual, qualitative, computer-generated quantitative data was used. There was good myocardial uptake of technetium compound. Motion artifact and soft tissue attenuations were noted. Increased visceral uptake was noted. No definitive areas of transient perfusion defect noted, No definitive areas of fixed perfusion defect or scars noted. EKG gated imaging showed LV EF at 79 %, rest and stress gated EF similar visually. T. I D. ratio was 1.19. Lung heart ratio noted to be within normal limits 0.40. No significant extracardiac and abnormal radiotracer activities were noted. RV free wall uptake was noted to be WNL. IMPRESSION: Also refer to comments under nuclear interpretation. Also test results needs to be interpreted in the context of pretest probability. 1. No definitive areas of transient perfusion defect noted. 2. There is no definitive scintigraphic evidence of myocardial infarction/scar. 3. EKG gated imaging shows left ventricular ejection fraction of approx. 79 %. 4. Clinical correlation requested as worse disease and or balanced ischemia could be missed. In approximately 10% of the cases Lexiscan may not cause adequate vasodilatory stress. RECOMMENDATIONS: Aggressive risk factor modification and medical management. Further evaluation may be needed if continued symptoms or other high risk indicators are noted on clinical evaluation. Close cardiology follow-up is also recommended. Clinical correlation with echocardiogram derived ejection fraction. Inability to exercise by itself can lead to increased cardiovascular event risks. Consider cardiology consultation and or follow-up if clinically indicated. I am available for cardiology evaluation and consultation if requested by the steam [employer] records clerk, unless patient already has a health and safety technician. Dr. Maryam Hendricks. MRCP Board certified in cardiology and sleep medicine. Board certified in nuclear cardiology, adult echocardiography. TONEY
== END ==
LOC: RAD 07:11
PROVIDERS: ATTEND Physician Assistant
DX: R07.9 Chest pain, unspecified (principal)
CPT/HCPCS: 93017; 78452; A9500; J2785; Q9969

== ENCOUNTER → 2020-07-19 | Outpatient (CLI) | payer MEDICARE, MEDICAID ==
[2020-07-19 10:28] LABS: ALBUMIN 4.7 g/dL (3.5-5.0); ALKALINE PHOSPHATASE 83 U/L (38-126); ANION GAP 7 (5-19); ASPARTATE AMINO TRANSFERASE 44 U/L (14-36); BILIRUBIN,DIRECT 0.3 mg/dL (0.0-0.4); BILIRUBIN,TOTAL 0.5 mg/dL (0.2-1.3); BLOOD UREA NITROGEN 28 mg/dL (7-20); CALCIUM 10.5 mg/dL (8.4-10.2); CARBON DIOXIDE 31 mmol/L (22-30); CHLORIDE 102 mmol/L (98-107); CHOLESTEROL 258.64 mg/dL (0-200); GLUCOSE 98 mg/dL (75-110); POTASSIUM 4.6 mmol/L (3.6-5.0); TOTAL PROTEIN 7.8 g/dL (6.3-8.2); TRIGLYCERIDES 80 mg/dL (<150)
[2020-07-19 10:40] LABS: DIRECT LDL 119 mg/dL (<100)
== END ==
LOC: OD 09:05
PROVIDERS: ATTEND Physician Assistant
DX: E78.00 Pure hypercholesterolemia, unspecified (principal); E83.42 Hypomagnesemia; I10 Essential (primary) hypertension; E55.9 Vitamin D deficiency, unspecified; Z79.899 Other long term (current) drug therapy
CPT/HCPCS: 36415; 80048; 80061; 80076; 82306; 83735

== ENCOUNTER → 2020-10-18 | Outpatient (CLI) | payer MEDICARE, MEDICAID ==
--- OUTSIDE RECORDS SUMMARY | 2020-10-18 08:33 | XMS REPORT ---
:1945 Author Organization [facility] Address [facility] [address] [place] [address] Care Team Providers Name Role Phone Alida Attending Clinician Unavailable Lyubov Attending Clinician Unavailable Alida Attending Clinician Unavailable Allergies, Adverse Reactions, Alerts Allergy Allergy Status Severity Reaction(s) Onset Inactive Treating C omments Name Type Date Date Clinician House Allergy to Active Cough Dust substance Medications Ordered Filled Start Stop Current Ordering Indication Dosage Frequency Signature Comments Components Medication Medication Date Date Medication? Clinician (SIG) Name Name hydrocodone 2018-09 No hydrocodon 5 0-31 e 5 mg-acetamin 00:00: mg-acetami ophen 325 00 nophen 325 mg tablet 1 mg tablet tablet po 1 tablet PRN po PRN Advair HFA No Advair HFA 115 mcg-21 115 mcg-21 mcg/actuati mcg/actuat on aerosol ion inhaler aerosol Inhale 2 inhaler puffs every Inhale 2 day by puffs inhalation every day route as by needed. inhalation route as needed. alendronate No alendronat 70 mg e 70 mg tablet Take tablet 1 tablet Take 1 every week tablet by oral every week route. by oral route. Edarbi 40 No Edarbi 40 mg tablet mg tablet Take 1 Take 1 tablet tablet every day every day by oral by oral route. route. esomeprazol No esomeprazo e magnesium le 40 mg magnesium capsule,del 40 mg ayed capsule,de release layed release hydrochloro No hydrochlor thiazide 25 othiazide mg tablet 25 mg Take 1 tablet tablet Take 1 every day tablet by oral every day route. by oral route. ibuprofen No ibuprofen 800 mg 800 mg tablet 1 tablet 1 tablet po tablet po prn prn metformin No metformin 500 mg 500 mg tablet Take tablet 1 tablet Take 1 every day tablet by oral every day route. by oral route. montelukast No montelukas 10 mg t 10 mg tablet Take tablet 1 tablet Take 1 every day tablet by oral every day route. by oral route. oxybutynin No oxybutynin chloride ER chloride 10 mg ER 10 mg tablet,exte tablet,ext nded ended release 24 release 24 hr Take 1 hr Take 1 tablet tablet every day every day by oral by oral route. route. ProAir HFA No 2puff(s ProAir HFA 90 ) 90 mcg/actuati mcg/actuat on aerosol ion inhaler aerosol Inhale 2 inhaler puffs as Inhale 2 needed by puffs as inhalation needed by route. inhalation route. Tylenol No 2 Q7H Tylenol Extra Extra Strength Strength 500 mg 500 mg tablet Take tablet 2 tablets Take 2 every 6-8 tablets hours by every 6-8 oral route. hours by oral route. triamcinolo No triamcinol ne one acetonide acetonide 0.1 % 0.1 % topical topical cream AAA cream AAA PRN PRN Problems Condition Condition Condition Status Onset Resolution Last Treatin g Comments Name Details Category Date Date Treatment Clinician Date Pain in Pain in Problem Active right hand Right Hand 6 00:00: 00 Pain Pain Problem Active management Management 6- 00:00: 00 Hyperlipide Hyperlipide Problem Active 2018-09 he he 0- 00:00: 00 Cough Cough Problem Active 2018-09 0 00:00: 00 Blood Blood Problem Active 2018-09 glucose Glucose 0-31 abnormal Abnormal 00:00: 00 Pain of Pain of Problem Active 2018-09 right Right 0- shoulder Shoulder 00:00: joint Joint 00 Low back Low Back Problem Active pain Pain 7-28 00:00: 00 Carpal Carpal Problem Active tunnel Tunnel syndrome Syndrome Hypertensiv Hypertensiv Problem Active e disorder e Disorder Osteoarthri Osteoarthri Problem Active tis of knee tis of Knee Knee pain Knee Pain Problem Active Ankle pain Ankle Pain Problem Active Osteoporosi Osteoporosi Problem Active s s Procedures Procedure Date / Time Performed Performing Clinician Devic e OFFICE/OUTPATIENT VISIT EST 2020-07-05 10:00:00 Incision, Tendon Sheath (Surg) 2020-04-10 00:00:00 OFFICE/OUTPATIENT VISIT EST 2020-03-06 08:45:00 injection, trigger point (PROC) 2019-09-09 00:00:00 epidural steroid injection, lumbar 2019-08-19 00:00:00 (PROC) epidural steroid injection, 2019-08-19 00:00:00 cervical (PROC) epidural steroid injection, lumbar 2019-08-03 00:00:00 (PROC) RADIOLOGIC EXAM SHOULDER 2 VIEWS 2019-07-28 00:00:00 OFFICE/OUTPATIENT VISIT EST 2019-07-04 13:30:00 OFFICE/OUTPATIENT VISIT EST 2019-02-09 09:45:00 DIAGNOSTIC COLONOSCOPY 2017-12-07 00:00:00 UPPER GI ENDOSCOPY BIOPSY 2017-12-07 00:00:00 OFFICE/OUTPATIENT VISIT NEW 2017-12-01 09:30:00 OFFICE/OUTPATIENT VISIT EST 2017-07-07 14:15:00 Trigger Finger Release (Surg) 2017-03-10 00:00:00 Carpal Tunnel Release (Surg) 2015-09-11 00:00:00 Carpal Tunnel Release (Surg) 2015-08-07 00:00:00 Eye Surgery 2010-03-28 00:00:00 Knee Surgery 1984-01-27 00:00:00 Results Test Description Test Time Test Comments Text Results Atomic Results Result Comments SARS-CoV-2 RNA Resp Ql KENN+probe 2020-04-10 00:00:00 Test Item Value Reference Range Comments SARS-CoV-2 RNA Resp Ql KENN+probe Not detected [facility] Case ID: (test code = 39263-1) [id number] SARS coronavirus 2 RNA [Presence] in Respiratory specimen by KENN with probe [id number] 00:00:00 Test Item Value Reference Range Comments SARS coronavirus 2 RNA [Presence] in not detected not detecte d Respiratory specimen by KENN with probe detection (test code = 96394-5) Hemoglobin A1C\S\2019-07-04 13:30:00 Test Item Value Reference Range Comments HgbA1C, Fingerstick (test code = 4548-4) 5.7 % 4-5.6 ALLERGY EVALUATION 2, [id number] 11:24:00 Test Item Value Reference Range Comments CLASS (test code = 07763789) 0 CLASS (test code = 66291537) 0 CLASS (test code = 41860769) 0 FEBRUARY GRASS([place] BLUE) (G8) IGE (test code = <0.10 kU/L 81492690) [id number] (test code = 10001870) See Below CLASS (test code = 65381928) 0 ROUGH PIGWEED (W14) IGE (test code = 36521679) <0.10 kU/L ALTERNARIA ALTERNATA (M6) IGE (test code = <0.10 kU/L 58481962) CAT DANDER (E1) IGE (test code = 74864565) <0.10 kU/L CLASS (test code = 31005696) 0 CLADOSPORIUM HERBARUM (M2) IGE (test code = <0.10 kU/L 36043687) CLASS (test code = 93284142) 0 DOG DANDER (E5) IGE (test code = 08175734) <0.10 kU/L COMMON RAGWEED (SHORT) (W1) IGE (test code = <0.10 kU/L 08403426) OAK (T7) IGE (test code = 40135511) <0.10 kU/L CLASS (test code = 67070180) 0 CLASS (test code = 39282055) 0 CLASS (test code = 54359193) 0 DERMATOPHAGOIDES FARINAE (D2) IGE (test code = 0.32 kU/L 54397456) CLASS (test code = 69414164) 0 BERMUDA GRASS (G2) IGE (test code = 80554699) <0.10 kU/L COMPREHENSIVE METABOLIC [id number] 11:24:00 Test Item Value Reference Range Comments ALBUMIN/GLOBULIN RATIO (test code = 1.7 (calc) 1.0-2.5 59542533) POTASSIUM (test code = 94353462) 4.3 mmol/L 3.5-5.3 ALBUMIN (test code = 86744262) 4.3 g/dL 3.6-5.1 AST (test code = 12478482) 20 U/L 10-35 UREA NITROGEN (BUN) (test code = 17484909) 19 mg/dL 7-25 ALT (test code = 02770777) 21 U/L 6-29 PROTEIN, TOTAL (test code = 23115406) 6.9 g/dL 6.1-8.1 eGFR NON-AFR. BELIZEAN (test code = 55 mL/min/1.73m2 > OR = 60 83538063) CARBON DIOXIDE (test code = 88512495) 30 mmol/L 20-32 SODIUM (test code = 58188215) 136 mmol/L 135-146 BILIRUBIN, TOTAL (test code = 35418698) 0.3 mg/dL 0.2-1.2 BUN/CREATININE RATIO (test code = 04610417) 19 (calc) 6-22 ALKALINE PHOSPHATASE (test code = 35871459) 65 U/L 33-1 30 GLOBULIN (test code = 18203626) 2.6 g/dL (calc) 1.9-3.7 GLUCOSE (test code = 41772323) 92 mg/dL 65-99 CREATININE (test code = 88041383) 1.01 mg/dL 0.60-0.93 eGFR (test code = 64 mL/min/1.73m2 > OR = 60 23482691) CALCIUM (test code = 00392470) 9.8 mg/dL 8.6-10.4 CHLORIDE (test code = 56088704) 99 mmol/L 98-110 VITAMIN [id number] 11:24:56187FTS (INCLUDES DIFF/PLT)2019-02-09 11:24:00 Test Item Value Reference Range Comments RED BLOOD CELL COUNT (test code = 73028738) 4.05 Million/uL 3.80 -5.10 LYMPHOCYTES (test code = 47265307) 42.3 % ABSOLUTE NEUTROPHILS (test code = 01981859) 3300 cells/uL 1500 -7800 HEMOGLOBIN (test code = 82566579) 12.2 g/dL 11.7-15.5 ABSOLUTE EOSINOPHILS (test code = 42561268) 380 cells/uL 15-5 00 MONOCYTES (test code = 81939181) 6.3 % RDW (test code = 14466299) 13.4 % 11.0-15.0 ABSOLUTE BASOPHILS (test code = 41005385) 73 cells/uL 0-200 MCHC (test code = 36814065) 33.2 g/dL 32.0-36.0 MCV (test code = 66395202) 90.9 fL 80.0-100.0 MPV (test code = 59258606) 9.1 fL 7.5-12.5 EOSINOPHILS (test code = 64671885) 5.2 % WHITE BLOOD CELL COUNT (test code = 7.3 Thousand/uL 3.8-10.8 25988426) PLATELET COUNT (test code = 07144412) 357 Thousand/uL 140-400 NEUTROPHILS (test code = 66534808) 45.2 % ABSOLUTE LYMPHOCYTES (test code = 73380389) 3088 cells/uL 850- 3900 MCH (test code = 48327719) 30.1 pg 27.0-33.0 HEMATOCRIT (test code = 78976827) 36.8 % 35.0-45.0 BASOPHILS (test code = 36806166) 1.0 % ABSOLUTE MONOCYTES (test code = 19088716) 460 cells/uL 200-95 0 [id number] 11:24:002.33MICROALBUMIN, RANDOM URINE (W/CREATININE)2019-02-09 11:24:00 Test Item Value Reference Range Comments MICROALBUMIN/CREATININE RATIO, RANDOM URINE 5 mcg/mg creat <30 (test code = 34442542) MICROALBUMIN (test code = 40464952) 0.3 mg/dL CREATININE, RANDOM URINE (test code = 56 mg/dL 20-275 00931195) VITAMIN D,25-OH,[id number] 11:24:0026Hemoglobin A1C\S\2019-02-09 09:45:00 Test Item Value Reference Range Comments HgbA1C, Fingerstick (test code = 4548-4) 5.5 % 4-5.6 IRON, TIBC AND FERRITIN [id number] 08:26:00 Test Item Value Reference Range Comments IRON BINDING CAPACITY (test code = 509 mcg/dL (calc) 250-450 30773182) % SATURATION (test code = 32375585) 11 % (calc) 11-50 IRON, TOTAL (test code = 86512281) 55 mcg/dL 45-160 FERRITIN (test code = 97818194) 8 ng/mL 20-288 CBC (INCLUDES DIFF/PLT)2018-02-18 08:26:00 Test Item Value Reference Range Comments MCV (test code = 03670352) 90.2 fL 80.0-100.0 MCH (test code = 80263192) 29.3 pg 27.0-33.0 MCHC (test code = 84732178) 32.5 g/dL 32.0-36.0 ABSOLUTE NEUTROPHILS (test code = 26067611) 2074 cells/uL 1500 -7800 WHITE BLOOD CELL COUNT (test code = 4.8 Thousand/uL 3.8-10.8 68028159) EOSINOPHILS (test code = 50103170) 1.5 % RDW (test code = 85212510) 14.4 % 11.0-15.0 PLATELET COUNT (test code = 12103381) 282 Thousand/uL 140-400 BASOPHILS (test code = 50888088) 0.8 % NEUTROPHILS (test code = 25143356) 43.2 % MPV (test code = 72643136) 9.1 fL 7.5-12.5 ABSOLUTE EOSINOPHILS (test code = 16783869) 72 cells/uL 15-5 00 RED BLOOD CELL COUNT (test code = 86143891) 3.68 Million/uL 3.80 -5.10 HEMATOCRIT (test code = 68903839) 33.2 % 35.0-45.0 LYMPHOCYTES (test code = 84572404) 47.6 % ABSOLUTE LYMPHOCYTES (test code = 76315150) 2285 cells/uL 850- 3900 ABSOLUTE MONOCYTES (test code = 12130913) 331 cells/uL 200-95 0 ABSOLUTE BASOPHILS (test code = 73483778) 38 cells/uL 0-200 MONOCYTES (test code = 94315115) 6.9 % HEMOGLOBIN (test code = 94121928) 10.8 g/dL 11.7-15.5 VITAMIN [id number] 08:26:58722Vymbjjf D, 25-Hydroxy, [id number] 09:06:00 Test Item Value Reference Range Comments Vitamin D (25-Hydroxy) (test code = 724722) 38 ng/mL 30-1 00 Hemoglobin A1c with [id number] 08:12:00 Test Item Value Reference Range Comments Hemoglobin A1C (test code = 333097) 6.0 % <5.7 eAG (calc) (test code = 136690) 126 mg/dL Lipid [id number] 08:12:00 Test Item Value Reference Range Comments HDL Cholesterol (test code = 795261) 90 mg/dL >=46 VLDL Cholesterol (Calc) (test code = 827024) 12 mg/dL <30 Total Chol/HDL Ratio (test code = 969252) 1.9 Ratio <=5.0 LDL Cholesterol (Calc) (test code = 197832) 73 mg/dL <130 Cholesterol (test code = 548195) 175 mg/dL 125-200 Triglyceride (test code = 864606) 60 mg/dL <150 CMP with Estimated [id number] 08:12:00 Test Item Value Reference Range Comments Potassium (test code = 696036) 4.6 mmol/L 3.5-5.3 AST/SGOT (test code = 951329) 29 U/L 10-35 Calcium (test code = 309165) 9.5 mg/dL 8.6-10.4 Est GFR, NonAfrican Samoan (test code = 701449) 66 mL/min >=60 Total Protein (test code = 266893) 7.2 g/dL 6.1-8.1 BUN (test code = 147363) 30 mg/dL 7-25 Alkaline Phosphatase (test code = 664645) 61 U/L 33-130 Sodium (test code = 389384) 138 mmol/L 135-146 Chloride (test code = 558217) 102 mmol/L 98-110 ALT/SGPT (test code = 409551) 30 U/L 6-29 Creatinine (test code = 285151) 0.88 mg/dL 0.60-0.93 Albumin (test code = 158171) 4.5 g/dL 3.6-5.1 Glucose (test code = 454431) 88 mg/dL 65-99 Bilirubin, Total (test code = 904499) 0.4 mg/dL 0.2-1.2 Est GFR, (test code = 913309) 76 mL/min > =60 CO2 (test code = 109076) 27 mmol/L 20-31 [id number] 08:12:00 Test Item Value Reference Range Comments TSH (test code = 853638) 2.57 mIU/L Microalbumin Creatinine [id number] 08:12:00 Test Item Value Reference Range Comments Microalbumin (test code = 927233) 0.3 mg/dL Not estab Microalbumin/Creatinine Ratio (test code = 4 mcg/mg creat <30 060854) Creatinine, Urine (test code = 002160) 83 mg/dL 20-320 CBC NO Diff (Complete Blood Count)2017-01-08 08:12:00 Test Item Value Reference Range Comments MCHC (test code = 599470) 32.6 g/dL 32.0-36.0 MCV (test code = 574168) 93.0 fL 80.0-100.0 MCH (test code = 554086) 30.3 pg 27.0-33.0 RBC (test code = 464380) 4.12 MIL/uL 3.80-5.10 MPV (test code = 527071) 9.5 fL 7.5-12.5 Hematocrit (test code = 220748) 38.3 % 35.0-45.0 RDW (test code = 133863) 14.4 % 11.0-15.0 WBC (test code = 005131) 6.5 K/uL 3.8-10.8 Hemoglobin (test code = 854274) 12.5 g/dL 11.7-15.5 Platelet Count (test code = 821976) 310 K/uL 140-400 Glucose\S\2017-01-06 09:00:00 Test Item Value Reference Range Comments Glucose, Fingerstick (test code = FSGLUCOSE) 123 mg/dL 70- 99 Assessments Condition Name Status Diagnosis Date Treating Clinici an Type 2 diabetes mellitus without Active complications Essential (primary) hypertension Active Mixed hyperlipidemia Active Encounter for immunization Active Pain in right hand Active 2020-04-26 09:32:26 Pain in right hand Active 2020-03-22 10:06:54 Trigger finger of right hand Active 2020-03-22 10:24:36 Umbilical hernia without obstruction or Active gangrene Trigger finger, right ring finger Active Other seborrheic keratosis Active Body mass index (BMI) 24.0-24.9, adult Active Chronic pain syndrome Active 2019-09-09 10:24:06 Low back pain Active 2019-09-09 10:24:06 Lumbar radiculopathy Active 2019-09-09 10:24:06 Myofascial pain Active 2019-09-09 10:24:06 Blood glucose abnormal Active 2019-09-09 10:24:06 Type 2 diabetes mellitus Active 2019-09-09 10:24:06 Cervical radiculopathy Active 2019-09-09 10:24:06 Pain of right shoulder joint Active 2019-09-01 10:00:32 Type 2 diabetes mellitus Active 2019-08-19 10:21:34 Cervical radiculopathy Active 2019-08-19 10:43:43 Chronic pain syndrome Active 2019-08-19 10:10:14 Low back pain Active 2019-08-19 10:10:14 Lumbar radiculopathy Active 2019-08-19 10:10:14 Myofascial pain Active 2019-08-19 10:10:14 Blood glucose abnormal Active 2019-08-19 10:10:38 Chronic pain syndrome Active 2019-08-03 10:02:18 Low back pain Active 2019-08-03 10:02:18 Lumbar radiculopathy Active 2019-08-03 10:05:31 Myofascial pain Active 2019-08-03 10:02:18 Pain of right shoulder joint Active 2019-07-28 10:41:31 Inflammation of rotator cuff tendon Active 2019-07-28 1 1:09:59 Type 2 diabetes mellitus without Active complications Pain in right lower leg Active Pain in left lower leg Active Peripheral vascular disease, Active unspecified Unspecified contact dermatitis, Active unspecified cause Cervicalgia Active Type 2 diabetes mellitus without Active complications Essential (primary) hypertension Active Gastritis, unspecified, without Active bleeding Esophageal obstruction Active Other hemorrhoids Active Dvrtclos of intest, part unsp, 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 abscess w/o bleed Hemorrhage of anus and rectum Active Epigastric pain Active Dvrtclos of lg int w/o perforation or Active abscess w/o bleeding Personal history of colonic polyps Active Venous insufficiency (chronic) Active (peripheral) Pelvic and perineal pain Active Encounter for immunization Active Body mass index (BMI) 25.0-25.9, adult Active Encounters Start End Encounter Admission Attending Care Care Encounter Date/Time Date/Time Type Type Clinicians Facility Department ID 2020-07-05 2020-07-05 Outpatient Alida [facility] [id number] 10:00:00 10:00:00 Joseph Children [id number] s [id number] and [id number] [facility], 2020-04-26 2020-04-26 Bear Lucero [id number] 00:00:00 00:00:00 MD Elisabeth: Surgical Surgical [id number] [address] [facility], [address] [address], Ph. 2020-03-22 2020-03-22 Bear Lucero [id number]_ [id number] 00:00:00 00:00:00 MD Elisabeth: Surgical Surgical [id number] [address] [facility], [address], [place] [address], Ph. 2020-03-06 2020-03-06 Outpatient Alida [facility] 2 [id number] 08:45:00 08:45:00 Joseph Shultz [id number] s [id number] and [id number] [facility] 2019-09-09 2019-09-09 Jose Lucero [id number] 00:00:00 00:00:00 MD Airam: Surgical Surgical [id number] [address] [facility] [address], [place] [address], Ph. 2019-09-01 2019-09-01 Bear Lucero [id number]_ 201 00:00:00 00:00:00 MD Elisabeth: Surgical Surgical [id number] [address] [facility], [place] [address], Ph. 2019-08-19 2019-08-19 Jose Peppereret [id number] 00:00:00 00:00:00 MD Airam: Surgical Surgical [id number] [address] [facility] [address], [place] [address], Ph. 2019-08-03 2019-08-03 Jose Nolascot [id number] 00:00:00 00:00:00 MD Airam: Surgical Surgical [id number] [address] [facility], [place] [address], Ph. 2019-07-28 2019-07-28 Bear Nolascot [id number]_ 201 00:00:00 00:00:00 MD Elisabeth: Surgical Surgical [id number] [address] [facility] [employer] [facility], [address], [place] [address], Ph. 2019-07-04 2019-07-04 Outpatient Alida [facility] A [id number] 13:30:00 13:30:00 Joseph Children???s [id number] and [id number] Multispecial [id number] ty Clini 2019-02-09 2019-02-09 [facility] [id number] 09:45:00 09:45:00 Joseph Children [id number] s [id number] and [id number] [facility], 2017-12-07 2017-12-07 Outpatient Lyubov lucy [facility] charli [id number] 00:00:00 00:00:00 Children [id number] s [id number] and [id number] [facility] 2017-12-01 2017-12-01 Outpatient Lyubov lucy [facility] [id number] 09:30:00 09:30:00 Children [id number] s [id number] and [id number] [facility] 2017-07-07 2017-07-07 Outpatient Alida [facility] Jose [id number] 14:15:00 14:15:00 Joseph Children [id number] s [id number] and [id number] [facility] [place] Immunizations Ordered Immunization Filled Immunization Date Status Commen ts Refusal Reason Name Name influenza, 2019-07-22 Completed injectable, 00:00:00 quadrivalent Social History Smoking Status Start Date Stop Date Former Smoker Vital Signs Vital Name Observation Time Observation Value Comments Height 2020-04-26 00:00:00 58 [in_i] BMI (Body Mass Index) 2020-04-26 00:00:00 23.4 kg/m2 Body Weight 2020-04-26 00:00:00 112 [lb_av] Height 2020-03-22 00:00:00 58 [in_i] BMI (Body Mass Index) 2020-03-22 00:00:00 23.4 kg/m2 Body Weight 2020-03-22 00:00:00 112 [lb_av] BP Diastolic 2019-09-09 00:00:00 67 mm[Hg] Height 2019-09-09 00:00:00 58 [in_i] BP Systolic 2019-09-09 00:00:00 112 mm[Hg] BP Diastolic 2019-09-01 00:00:00 72 mm[Hg] Height 2019-09-01 00:00:00 58 [in_i] BMI (Body Mass Index) 2019-09-01 00:00:00 23.4 kg/m2 BP Systolic 2019-09-01 00:00:00 120 mm[Hg] Body Weight 2019-09-01 00:00:00 112 [lb_av] BP Diastolic 2019-08-19 00:00:00 57 mm[Hg] Height 2019-08-19 00:00:00 58 [in_i] BMI (Body Mass Index) 2019-08-19 00:00:00 22.2 kg/m2 BP Systolic 2019-08-19 00:00:00 104 mm[Hg] Body Weight 2019-08-19 00:00:00 106 [lb_av] Height 2019-08-03 00:00:00 58 [in_i] BP Diastolic 2019-07-28 00:00:00 76 mm[Hg] Height 2019-07-28 00:00:00 58 [in_i] BMI (Body Mass Index) 2019-07-28 00:00:00 22.3 kg/m2 BP Systolic 2019-07-28 00:00:00 118 mm[Hg] Body Weight 2019-07-28 00:00:00 106.6 [lb_av] Hospital Discharge Instructions 1. Pain in right hand Discussion Note triggering ressovled f/u as needed All the patients questions have been fully addressed at this time. Patient educational handouts: No information available.1. Pain in right hand 2. Trigger finger of right hand Discussion Note Surgery Counseling Trigger Finger Release, RIGHT RING Finger, LOCAL 04/10/2020 [facility] We discussed various methods of treatment for th is diagnosis, including both non-surgical and surgical treatment options. The procedure was discussed in detail, including rationale for proceeding with the procedure, specifics of the technical aspects of the procedure, and the expected postoperative course including the possible need for activity modification, therapy, and duration of expected recovery. Risks to surgery include: pain, numbing, scar, infection, loss of motion, nerve or vascular injury, stiffness, blood loss, reoccurrence, re-operation, these have been discussed along with the success rates (expected outcomes) of the procedure, andrisk of anesthesia were discussed. Patient fully understands that there are no guarantees with surgical intervention. The patient voiced understanding of the procedure and risks, and the decision for surgery was made today. Patient educational handouts: No information available.1. Pain of right shoulder joint XR, shoulder 2. Inflammation of rotator cuff tendon Discussion Note Likely bursitis versus rotator cuff tendinitis versus small tear right shoulder All for the injection exercises will help her. She will follow up in 4-6 weeks for reevaluation. Patient educational handouts: No information available.
[2020-10-18 09:14] LABS: ALBUMIN 4.2 g/dL (3.5-5.0); ALKALINE PHOSPHATASE 67 U/L (38-126); ASPARTATE AMINO TRANSFERASE 31 U/L (14-36); BILIRUBIN,DIRECT 0.1 mg/dL (0.0-0.4); BILIRUBIN,TOTAL 0.4 mg/dL (0.2-1.3); BLOOD UREA NITROGEN 20 mg/dL (7-20); CALCIUM 9.8 mg/dL (8.4-10.2); CARBON DIOXIDE 32 mmol/L (22-30); GLUCOSE 97 mg/dL (75-110); POTASSIUM 4.7 mmol/L (3.6-5.0); TOTAL PROTEIN 7.2 g/dL (6.3-8.2)
[2020-10-18 09:19] LABS: CHLORIDE 100 mmol/L (98-107)
[2020-10-18 09:24] LABS: ANION GAP 4 (5-19)
== END ==
LOC: OD 08:21
PROVIDERS: ATTEND Physician Assistant
DX: I10 Essential (primary) hypertension (principal); Z79.899 Other long term (current) drug therapy; R94.5 Abnormal results of liver function studies
CPT/HCPCS: 36415; 80048; 80076